=== PATIENT | male | born 1975 | race Two or more races ===

== ENCOUNTER 2020-01-26 10:44 | Emergency (ER) | payer OTHER ==
[~2020-01-26] VITALS: Ht 188 cm; Wt 136.1 kg
[~2020-01-26 10:44] MED LIST: LISINOPRIL10 MG; PROVENTIL0.5 ML/2.5; TOPROL XL50 MG
== END 2020-01-26 14:11 | disposition home or self-care (01) ==
LOC: ER 10:44
DX: R07.89 Other chest pain (principal); R51 Headache; F41.8 Other specified anxiety disorders; Z03.818 Encounter for observation for suspected exposure to other biological agents ruled out